=== PATIENT | female | born 1975 | race Two or more races ===

== ENCOUNTER 2022-09-01 16:52 | Emergency (ER) | payer MEDICAID ==
[~2022-09-01] VITALS: Ht 160 cm; Wt 50.8 kg
[2022-09-01] MEDS ORDERED: LIDOCAINE 1%HCL (LOCAL ANESTH) 10 ML MDV ONE (20:11)
[2022-09-01] MEDS ORDERED: LIDOCAINE 1% HCL (LOCAL ANESTH.) INJ 20ML MDV ID ONE (20:15)
[2022-09-01] MEDS ORDERED: CEPH-510 PO (20:32)
[2022-09-01 20:40] VITALS: BP 145/81
== END 2022-09-01 20:42 | disposition home or self-care (01) ==
LOC: ER 16:56
DX: S01.511A Laceration without foreign body of lip, initial encounter (principal); W55.03XA Scratched by cat, initial encounter; Y93.89 Activity, other specified; Y92.89 Other specified places as the place of occurrence of the external cause; Y99.8 Other external cause status
CPT/HCPCS: 12011; 99283; J2001; 40650